=== PATIENT | female | born 1940 | race African-American/Black ===

== ENCOUNTER 2024-06-04 13:01 | Emergency (ER) | payer OTHER, MEDICAID ==
[~2024-06-04] VITALS: Ht 154.9 cm; Wt 60.0 kg
[2024-06-04 13:05] VITALS: O2SAT 98
[2024-06-04] MEDS: SODIUM CHLORIDE 0.9% 1,000 ML IV ONE (13:45)
[2024-06-04] MEDS: FAMOTIDINE 20MG/2ML VIAL IV ONE (13:45)
[2024-06-04] MEDS: ONDANSETRON HCL 4MG/2ML INJ IV ONE (13:45)
[2024-06-04 14:43] LABS: BASOPHILS % 0.4 % (0.0-2.0); EOSINOPHILS % 0.1 % (0.0-5.0); HEMATOCRIT. 26.9 % (36.0-48.0); HEMOGLOBIN. 8.5 g/dL (12.0-16.0); LYMPHOCYTES % 12.4 % (20.0-50.0); MEAN CORPUSCULAR HEMOGLOBIN 26.9 pg (28.0-32.0); MEAN CORPUSCULAR HGB CONC 31.5 g/dL (31.0-37.0); MEAN CORPUSCULAR VOLUME 85.5 fL (81.0-99.0); MEAN PLATELET VOLUME 7.7 fl (7.4-10.4); MONOCYTES % 4.8 % (2.0-8.0); NEUTROPHILS % 82.3 % (40.0-76.0); PLATELET 257 x1000/uL (130-400); RED BLOOD CELL COUNT 3.15 mill/uL (4.2-5.4); RED CELL DISTRIBUTION WIDTH 16.9 % (11.6-14.6); WHITE BLOOD COUNT 5.1 x1000/uL (4.5-11.0)
[2024-06-04 14:47] LABS: CHLORIDE 108 mEq/L (98-107); POTASSIUM 4.7 mEq/L (3.5-5.1); SODIUM 140 mEq/L (136-145)
[2024-06-04 14:48] LABS: CARBON DIOXIDE 26 mEq/L (21-32)
[2024-06-04 14:49] LABS: CALCIUM 8.5 mg/dL (8.7-10.4)
[2024-06-04 14:53] LABS: CREATININE 1.4 mg/dL (0.6-1.0); GLUCOSE 236 mg/dL (70-105); UREA NITROGEN BLOOD 24 mg/dL (9-23)
[2024-06-04 14:57] LABS: TROPONIN I HIGH SENSITIVITY 15 ng/L (3.0-34)
[2024-06-04 15:16] VITALS: BP 143/69; PULSE 70; RESP 18; TEMP 36.7; O2SAT 98
[2024-06-04] MEDS: CALCIUM GLUCONATE 1GM PREMIX 50 ML IV NR (15:16)
== END 2024-06-04 16:00 | disposition home or self-care (01) ==
LOC: ER 13:23
DX: R55 Syncope and collapse (principal); E11.9 Type 2 diabetes mellitus without complications; I10 Essential (primary) hypertension; I67.82 Cerebral ischemia
CPT/HCPCS: 80048; 82962; 85025; 84484; 36415; 70450; 96374; 96375; 99285; J0610; J3490; J2405; J7030; A4606